=== PATIENT | male | born 1980 | race Hispanic/Latino ===

== ENCOUNTER 2018-03-16 10:50 | Observation (INO) | payer BC ==
--- NOTE | 2018-03-16 11:20 | ED PDOC ---
Arrival/HPI - General Chief Complaint: Altered Mental Status Historian: Patient - History of Present Illness Narrative History of Present Illness (Text): 03/16/18 11:13 37yo male with no significant pmhx and rotator cough surgery repair a month ago who present with complaint of AMS and left sided facial pain. Patient states he wasn't making sense while speaking with his girlfriend this morning and the girlfriend spoke with the PMD, Dr. Nunez who referred him to ED for head CT. Patient reports having cold symptoms for the past 2weeks now. States symptoms includes nonproductive cough. He denies fever, but was febrile in triage. Reports pain over his left eyebrow and cheek area. He also admitted to SOB since this morning. Denies chest pain, nausea, vomiting, focal weakness, abdominal pain, dysarthria, facial droop, dizziness, any other complaint. Past Medical History - Provider Review Nursing Documentation Reviewed: Yes - Infectious Disease Hx of Infectious Diseases: None - Cardiac Hx Hypertension: Yes - Pulmonary Hx Asthma: Yes - Psychiatric Hx Substance Use: No - Surgical History Hx Orthopedic Surgery: Yes Other/Comment: Right shoulder sx, 02/2018 - Anesthesia Hx Anesthesia: No Family/Social History - Physician Review Nursing Documentation Reviewed: Yes Family/Social History: Unknown Family HX Smoking Status: Heavy Smoker > 10 Cigarettes Daily Hx Alcohol Use: No Hx Substance Use: No Allergies/Home Meds Allergies/Adverse Reactions: Allergies No Known Allergies Allergy (Verified 03/16/18 11:03) Home Medications: Home Meds Medication Instructions Recorded Confirmed Varenicline Tartrate [Chantix] 1 mg PO DAILY 03/16/18 03/16/18 Review of Systems - Physician Review All systems were reviewed & negative as marked: Yes - Review of Systems Constitutional: Normal Eyes: Normal ENT: Normal Respiratory: Normal Cardiovascular: Normal Gastrointestinal: Normal Genitourinary Male: Normal Musculoskeletal: Normal Skin: Normal Neurological: Other (Left facial pain). absent: Headache, Focal Weakness, Facial Droop, Disequilibrium Endocrine: Normal Hemo/Lymphatic: Normal Psychiatric: Normal Physical Exam Vital Signs Reviewed: Yes Vital Signs Temp Pulse Resp BP Pulse Ox 03/16/18 11:00 101.8 F H 89 18 119/75 100 Temperature: Febrile Blood Pressure: Normal Pulse: Regular Respiratory Rate: Normal Appearance: Positive for: Well-Appearing, Non-Toxic, Comfortable Pain Distress: None Mental Status: Positive for: Alert and Oriented X 3 - Systems Exam Head: Present: Atraumatic, Normocephalic Pupils: Present: PERRL Extroacular Muscles: Present: EOMI Conjunctiva: Present: Normal Mouth: Present: Moist Mucous Membranes Nose (Internal): Present: Normal Inspection, Other (Tenderness over the left sided frontal and maxillary sinuses) Neck: Present: Normal Range of Motion. No: Meningeal Signs Respiratory/Chest: Present: Clear to Auscultation, Good Air Exchange. No: Respiratory Distress, Accessory Muscle Use Cardiovascular: Present: Regular Rate and Rhythm, Normal S1, S2. No: Murmurs Abdomen: No: Tenderness, Distention, Peritoneal Signs Back: Present: Normal Inspection Upper Extremity: Present: Normal Inspection. No: Cyanosis, Edema Lower Extremity: Present: Normal Inspection. No: Edema Neurological: Present: GCS=15, CN II-XII Intact, Speech Normal, Motor Func Grossly Intact, Normal Sensory Function, Normal Cerebellar Funct, Norm Deep Tendon Reflexes, Gait Normal, Memory Normal, Normal 2Pt Descrimination, Other (No focal neurological deficit) Skin: Present: Warm, Dry, Normal Color. No: Rashes Psychiatric: Present: Alert, Oriented x 3, Normal Insight, Normal Concentration Medical Decision Making - RAD Interpretation Radiology Orders: 03/16/18 11:10 CHEST PORTABLE [RAD] Stat 03/16/18 11:12 HEAD W/O CONTRAST [CT] Stat - Medication Orders Current Medication Orders: Acetaminophen (Tylenol 325mg Tab) 975 mg PO ONCE PRN PRN Reason: Fever >100.4 F rTPA Inclusion/Exclusion - Refusal of Treatment Patient Refused Treatment: No - Inclusion Criteria for Altepase Patient is 18 years or Older: Yes The Clinical Diagnosis of Ischemic Stroke That is Causing a Potentially Disabling Neurological Deficit: No Time of Onset is Well Established to be Less Than 270 Minute Before Treatment Would Begin: Yes Risk/Benefit Discussed With Patient/Family Member Present: No - Exclusion Criteria for Altepase Uncontrolled Hypertension at Time of Treatment (Systolic BP above 185 or Diastolic BP above 110 mmHg): No Active Internal Bleeding: No Known Bleeding Diathesis Including but Not Limited to: Platelets Below 100,000/mm,PTT Above 40 sec After Heparin Use, Current Use of Oral Anitcoagulant With INR Greater Than 1.7 or PT Greater Than 15 secs: No Evidence of an Intracranial Hemorrhage: No Evidence of Major Acute Infarct With Signs Greater Than 1/3 MCA Territory: No Suspicion of Subarachnoid Hemorrhage on Pretreatment Evaluation Even if CT Head Negative For Hemorrhage: No - Warning to TPA With Conditions Following Conditions Weighed Against Anticipated Benefit: No Condition: Stroke Serevity Too Mild NIHSS Stroke Scale 3 - Date/Time Evaluation Performed Date Performed: 03/16/18 Time Performed: 11:00 When Was NIHSS Performed: Baseline - How Severe is the Stroke Level of Consciousness: 0=Alert LOC to Questions: 0=Both comments correct LOC to commands: 0=Obeys both correctly Best Gaze: 0=Normal Visual: 0=No visual loss Facial: 0=Normal Motor Arm - Left: 0=No drift Motor Arm - Right: 0=No drift Motor Leg - Left: 0=No drift Motor Leg - Right: 0=No drift Limb Ataxia: 0=Absent Best Language: 0=No aphasia Dysarthia: 0=Normal articulation Extinction & Inattention (Neglect): 0=Normal, no object Disposition/Present on Arrival - Present on Arrival Any Indicators Present on Arrival: No History of DVT/PE: No History of Uncontrolled Diabetes: No Urinary Catheter: No History of Decub. Ulcer: No History Surgical Site Infection Following: None - Disposition Have Diagnosis and Disposition been Completed?: Yes Diagnosis: TIA (transient ischemic attack), Viral syndrome Disposition: HOSPITALIZED Disposition Time: 13:50 Patient Plan: Admission Patient Problems: Current Active Problems Problem Status Onset TIA (transient ischemic attack) Acute Viral syndrome Acute Condition: FAIR
[2018-03-16 11:25] LABS: VENOUS BLOOD GAS BASE EXCESS 1.7 mmol/L (0.0-2.0); VENOUS BLOOD GAS PO2 53 mm/Hg (30-55); VENOUS BLOOD PH 7.39 (7.32-7.43)
[2018-03-16 11:31] LABS: BASO # 0.02 K/mm3 (0.0-2.0); BASO % 0.2 % (0.0-3.0); EOS # 0.7 (0.0-0.7); EOS % 5.5 % (1.5-5.0); GRAN # 7.68 (1.4-6.5); GRAN % 65.4 % (50.0-68.0); HEMOGLOBIN 16.4 g/dL (14.0-18.0); LYMPH # 2.3 (1.2-3.4); LYMPH % 19.7 % (22.0-35.0); MEAN CELL VOLUME 91.3 fl (80.0-105.0); MEAN CORPUSCULAR HEMOGLOBIN 32.6 pg (25.0-35.0); MEAN CORPUSCULAR HGB CONC 35.7 g/dl (31.0-37.0); MONO # 1.1 (0.1-0.6); MONO % 9.2 % (1.0-6.0); RBC 5.03 10^6/uL (3.5-6.1); WHITE BLOOD COUNT 11.8 10^3/uL (4.5-11.0)
[2018-03-16 11:37] LABS: ALB/GLOB RATIO 1.4 (1.1-1.8); ALBUMIN 4.6 g/dL (3.0-4.8); ALT/SGPT 23 U/L (7-56); AST/SGOT 22 U/L (17-59); BLOOD UREA NITROGEN 14 mg/dL (7-21); CALCIUM 9.9 mg/dL (8.4-10.5); GFR NON-AFRICAN AMERICAN > 60
[2018-03-16 11:41] LABS: INR 1.01; PROTHROMBIN TIME 11.6 SECONDS (9.4-12.5)
[2018-03-16 11:47] LABS: TROPONIN I < 0.01 ng/mL
[2018-03-16 12:06] LABS: D DIMER < 200 ng/mlDDU (0-243)
--- NOTE | 2018-03-16 12:56 | RAD ---
Date of service: 03/16/2018 HISTORY: Sepsis Patient COMPARISON: 09/17/2013. FINDINGS: LUNGS: The lungs are well inflated and clear. PLEURA: No pleural effusions or pneumothorax. CARDIOVASCULAR: The heart is normal in size. No aortic atherosclerotic calcification present. OSSEOUS STRUCTURES: Within normal limits for the patient's age. VISUALIZED UPPER ABDOMEN: Normal. OTHER FINDINGS: None. IMPRESSION: No active pulmonary disease.
--- NOTE | 2018-03-16 13:41 | CT ---
Date of service: 03/16/2018 PROCEDURE: CT HEAD WITHOUT CONTRAST. HISTORY: AMS COMPARISON: None available. TECHNIQUE: Axial computed tomography images were obtained through the head/brain without intravenous contrast. Radiation dose: Total exam DLP = 858.43 mGy-cm. This CT exam was performed using one or more of the following dose reduction techniques: Automated exposure control, adjustment of the mA and/or kV according to patient size, and/or use of iterative reconstruction technique. FINDINGS: HEMORRHAGE: No intracranial hemorrhage. BRAIN: Cuadra-white matter differentiation is preserved. There is no mass, mass effect or abnormal extra-axial fluid collection. There is no territorial infarction. The midline sagittal structures are normal. VENTRICLES: The ventricles are normal in size, shape and configuration. CALVARIUM: There is no calvarial fracture or extracranial soft tissue swelling. PARANASAL SINUSES: Predominantly clear. MASTOID AIR CELLS: Predominantly clear. OTHER FINDINGS: None. IMPRESSION: No acute intracranial abnormality.
[2018-03-16 14:15] LABS: PH,URINE 6.5 (4.7-8.0); URINE BILIRUBIN SMALL (NEGATIVE); URINE BLOOD NEGATIVE (NEGATIVE); URINE GLUCOSE (UA) NEGATIVE (NEGATIVE); URINE LEUKOCYTE ESTERASE NEGATIVE Leu/uL (NEGATIVE); URINE PROTEIN NEGATIVE mg/dL (<30 mg/dL); URINE UROBILINOGEN 0.2 E.U./dL (<1 E.U./dL)
[2018-03-16 14:16] LABS: URINE APPEARANCE CLEAR (CLEAR); URINE COLOR YELLOW (YELLOW)
[2018-03-16 18:46] VITALS: BMI 25.8
[2018-03-16] MEDS ORDERED: Pneumococcal 23-Valent Vaccine IM ONE (18:46)
[2018-03-16] MEDS ORDERED: Influenza Vaccine 60 mcg/0.5 mL SYR (4YR UP) IM ONE (18:46)
[2018-03-16 18:57] LABS: HDL CHOLESTEROL 35 mg/dL (29-60)
[2018-03-16 19:08] LABS: LDL CHOLESTEROL 128 mg/dL (0-129)
[2018-03-16 19:28] VITALS: RESP 20
--- NOTE | 2018-03-16 20:24 | CARD ---
APPROVED REPORT Date of service: 03/16/2018 EKG Measurement Heart [id number] CT [id number] <Conclusion> Normal sinus rhythm Normal ECG
[2018-03-16 22:11] LABS: BARBITURATES, UR NEGATIVE (NEGATIVE); BENZODIAZEPINES, UR NEGATIVE (NEGATIVE); OPIATES, UR NEGATIVE (NEGATIVE); PHENCYCLIDINE, UR NEGATIVE (NEGATIVE)
[2018-03-17 06:52] VITALS: BP 109/60; TEMP 97.9; O2SAT 97
--- NOTE | 2018-03-17 10:55 | RAD ---
Date of service: 03/17/2018 PROCEDURE: Radiographs of the Right Shoulder HISTORY: R/O FOREIGN BODY FOR MRI CLEARANCE COMPARISON: No prior. FINDINGS: BONES: Bone alignment and mineralization are normal. There is no acute displaced fracture or bone destruction. There are postsurgical changes in the distal clavicle. JOINTS: Normal. Glenohumeral and acromioclavicular joints preserved. No osteoarthritis. SOFT TISSUES: Normal. OTHER FINDINGS: There is no evidence of radiopaque foreign body. IMPRESSION: No evidence of radiopaque foreign body.
[2018-03-17] MEDS ORDERED: Gadodiamide 287 MG/ML VIAL (15ML) IV ONE (11:21)
--- NOTE | 2018-03-17 12:31 | MRI ---
Date of service: 03/17/2018 PROCEDURE: MRI BRAIN WITH AND WITHOUT CONTRAST HISTORY: TIA COMPARISON: Noncontrast head CT from 03/16/2018. TECHNIQUE: Multiplanar, multisequence MR images of the brain were obtained with and without intravenous contrast enhancement. 15 cc Omniscan was injected intravenously FINDINGS: HEMORRHAGE: None DWI: No evidence of an acute or early subacute infarction. BRAIN PARENCHYMA: Cuadra-white matter differentiation is preserved. There is no mass, mass effect or abnormal extra-axial fluid collection. There is no territorial infarction. The midline sagittal structures are normal. ENHANCEMENT: No abnormal parenchymal or leptomeningeal intracranial enhancement. VENTRICLES: The ventricles are normal in size, shape and configuration. CRANIUM: There is normal bone marrow signal pattern. ORBITS: Grossly unremarkable. PARANASAL SINUSES/MASTOIDS: Predominantly clear. VASCULAR SYSTEM: There are normal signal voids in the larger intracranial arteries. OTHER FINDINGS: None . IMPRESSION: Normal pre and post contrast enhanced MRI of the brain.
[2018-03-17 12:46] LABS: ALB/GLOB RATIO 1.7 (1.1-1.8); ALBUMIN 4.9 g/dL (3.0-4.8); ALT/SGPT 27 U/L (7-56); AST/SGOT 19 U/L (17-59); BLOOD UREA NITROGEN 17 mg/dL (7-21); CALCIUM 10.5 mg/dL (8.4-10.5); GFR NON-AFRICAN AMERICAN > 60; HDL CHOLESTEROL 42 mg/dL (29-60)
[2018-03-17 12:54] LABS: LDL CHOLESTEROL 136 mg/dL (0-129)
[2018-03-17 12:55] LABS: BASO # 0.03 K/mm3 (0.0-2.0); BASO % 0.2 % (0.0-3.0); EOS # 0.7 (0.0-0.7); EOS % 5.1 % (1.5-5.0); GRAN # 8.2 (1.4-6.5); LYMPH % 23.4 % (22.0-35.0); MEAN CELL VOLUME 92.5 fl (80.0-105.0); MEAN CORPUSCULAR HEMOGLOBIN 32.8 pg (25.0-35.0); MEAN CORPUSCULAR HGB CONC 35.5 g/dl (31.0-37.0); MEAN PLATELET VOLUME 10.1 fl (7.0-11.0); MONO # 0.9 (0.1-0.6); MONO % 7.3 % (1.0-6.0); RBC 5.18 10^6/uL (3.5-6.1); WHITE BLOOD COUNT 12.8 10^3/uL (4.5-11.0)
--- NOTE | 2018-03-17 15:03 | HP ---
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 Patient recently has a history of tobacco abuse, but recently started Chantix approximately 2 weeks ago. Also, was noted by his girlfriend to be having change in mental status, confusion, disorientation, also some visual disturbances and altered speech pattern. Patient contacted myself by phone. The patient was advised to come to the emergency room for evaluation. Patient states this has started on one day, the day of admission. Patient had no prior episodes of these episodes in the past. Patient has no other past medical history or past surgical history. Patient is a smoker, declines any drug abuse. Does have a history of having a Benadryl overdose several years ago. FAMILY HISTORY: Noncontributory except for lupus in his mother. SOCIAL HISTORY: Patient has no travel history. Has no history of IV drug abuse or illicit drug abuse. REVIEW OF SYSTEMS: Pertinent only for distorted vision, altered thoughts. No sensation in the arms or legs. Patient denies any imbalance or walking problems. Patient does complain of some cough and sputum production, also was found to have low-grade fever on admission. Patient denies any headache. Denies any nausea or vomiting. Denies any recent head trauma. GASTROINTESTINAL: Negative for nausea, vomiting and diarrhea. MUSCULOSKELETAL: Positive only for some discomfort in the right shoulder, which is 2 weeks postop from right rotator cuff repair. CONSTITUTIONAL: Only positive for fever. RESPIRATORY: Patient complains of some cough and sputum production, but no shortness of breath and no hemoptysis. PHYSICAL EXAMINATION: GENERAL: Shows a well-developed, well-nourished white male in no apparent distress. HEENT: Essentially within normal limits. HEART: Regular sinus rhythm. No S3 or murmurs. CHEST: Clear to auscultation. Patient shows some light rales, rhonchi at both bases. ABDOMEN: Benign, no hepatosplenomegaly. EXTREMITIES: No cyanosis, clubbing or edema. NEUROLOGIC: Essentially within normal limits. Extraocular muscles are intact. Cranial nerves II-XII are intact. Strength and sensation of lower extremities within normal limits. There is no ataxia and there is no Romberg. IMPRESSION: Change in mental status, confusion, possible reaction to Chantix, elevated fever, possible early sepsis. Regis Nunez MD
--- NOTE | 2018-03-17 15:40 | PN ---
DATE: 03/17/2018 SUBJECTIVE: The patient is neurologically alert and oriented x3 and has no further visual disturbances. PHYSICAL EXAMINATION GENERAL: The patient is awake, alert, and oriented x3. There is no focal lateralizing defect. VITAL SIGNS: Temperature has gone down to 97.5. The patient had had a fever as high as 99.8 on admission. Blood pressure 109/60. Pulse was 76. CHEST: Some rhonchi at both bases. ABDOMEN: Benign. EXTREMITIES: No cyanosis, clubbing, or edema. NEUROLOGIC: Examination is grossly intact. LABORATORY DATA: Remarkable only for a slightly elevated white count of 11.8 with a left shift. The patient did have a negative tox screen and had negative troponins. Negative for flu. The patient had a negative CT of the head and is having an MRI today and neurological consultation by Dr. Brumfield. Regis Nunez MD
[2018-03-17 16:00] VITALS: PULSE 79
--- NOTE | 2018-03-19 04:06 | DS ---
The patient was admitted with change in mental status. confusion, disorientation. Had MRA, MRI, and a CT of the head done. The patient was found to have change in mental status, which resolved uneventfully. He was hydrated fever which resolved. He also had possible reaction to Chantix. The patient, after the MRA and MRI were negative, was able to discharge home in improved condition to follow up as an outpatient. FINAL DISCHARGE DIAGNOSES: 1. Medication reaction. 2. Viral syndrome. 3. Change in mental status. Regis Nunez MD
== END 2018-03-17 16:25 | disposition home or self-care (01) ==
LOC: ED 10:50 → ERH 13:59 → 3RSO 18:14
PROVIDERS: ADMIT Internal Medicine; ATTEND Internal Medicine
DX: R41.82 Altered mental status, unspecified (principal); B34.9 Viral infection, unspecified; T44.995A Adverse effect of other drug primarily affecting the autonomic nervous system, initial encounter; I10 Essential (primary) hypertension; J00 Acute nasopharyngitis [common cold]; J45.909 Unspecified asthma, uncomplicated; Z87.891 Personal history of nicotine dependence; D72.829 Elevated white blood cell count, unspecified
CPT/HCPCS: 36415; 70450; 70553; 71045; 73030; 80053; 80061; 81003; 82803; 83735; 84100; 84484; 85025; 85378; 85610; 85730; 87040; 87804; 93005; 99285; A9579; G0378; G0480